=== PATIENT | female | born 1970 | race Two or more races ===

== ENCOUNTER 2018-03-22 15:21 | Inpatient (IN) | payer MEDICAID, OTHER ==
[~2018-03-22] VITALS: Ht 157.5 cm; Wt 35.4 kg
[2018-03-22 17:48] LABS: BASOPHILS % 0.8 % (0.0-2.0); EOSINOPHILS % 1.3 % (0.0-5.0); HEMATOCRIT. 36.8 % (36.0-48.0); HEMOGLOBIN. 12.2 g/dL (12.0-16.0); LYMPHOCYTES % 51.5 % (20.0-50.0); MEAN CORPUSCULAR HEMOGLOBIN 32.3 pg (28.0-32.0); MEAN CORPUSCULAR VOLUME 97.9 fL (81.0-99.0); MEAN PLATELET VOLUME 9.6 fl (7.4-10.4); MONOCYTES % 11.3 % (2.0-8.0); NEUTROPHILS % 35.1 % (40.0-76.0); PLATELET 145 x1000/uL (130-400); RED BLOOD CELL COUNT 3.76 mill/uL (4.2-5.4); RED CELL DISTRIBUTION WIDTH 13.7 % (11.6-14.6)
[2018-03-22 17:53] LABS: CHLORIDE 113 mEq/L (98-107)
[2018-03-22 17:56] LABS: INR 1.1
[2018-03-22 19:35] LABS: T4 FREE 0.79 ng/dL (0.76-1.46)
[2018-03-22] MEDS ORDERED: DIPH25CA83 MT (21:10)
[2018-03-22] MEDS ORDERED: AZIT500T5 MT (21:10)
[2018-03-22] MEDS ORDERED: ERGO400T7 MT (21:11)
[2018-03-22] MEDS ORDERED: PIRO20CA MT (21:12)
[2018-03-22] MEDS ORDERED: PRED-543 PO (21:12)
[2018-03-22 23:00] VITALS: BP 97/55
[2018-03-22 23:03] VITALS: BP 97/55
[2018-03-22] MEDS ORDERED: ACETAMINOPHEN 325MG TABLET PO PRN (23:45)
[2018-03-23] VITALS (9 sets, daily range): BP systolic 93–105; BP diastolic 45–73
[2018-03-23] MEDS ORDERED: MIRT7.5T11 MT (06:55)
[2018-03-23] MEDS ORDERED: GABA300C MT (06:56)
[2018-03-23 06:58] LABS: BASOPHILS % 0.6 % (0.0-2.0); EOSINOPHILS % 1.5 % (0.0-5.0); HEMATOCRIT. 36.7 % (36.0-48.0); HEMOGLOBIN. 12.4 g/dL (12.0-16.0); LYMPHOCYTES % 54.5 % (20.0-50.0); MEAN CORPUSCULAR HEMOGLOBIN 33.1 pg (28.0-32.0); MEAN CORPUSCULAR VOLUME 97.8 fL (81.0-99.0); MEAN PLATELET VOLUME 10.2 fl (7.4-10.4); MONOCYTES % 10.7 % (2.0-8.0); NEUTROPHILS % 32.7 % (40.0-76.0); PLATELET 138 x1000/uL (130-400); RED BLOOD CELL COUNT 3.75 mill/uL (4.2-5.4); RED CELL DISTRIBUTION WIDTH 13.7 % (11.6-14.6)
[2018-03-23 08:14] LABS: CHLORIDE 109 mEq/L (98-107)
[2018-03-23] MEDS ORDERED: ENOXAPARIN 30MG/0.3ML SYR SUBCUT SCH (09:00)
[2018-03-23] MEDS ORDERED: POTASSIUM CHLORIDE 20MEQ TABLET SR PO ONE (10:45)
[2018-03-23] MEDS ORDERED: PNEUMOCOCCAL 23-VAL P-SAC VAC 0.5 ML IM ONE (12:00)
[2018-03-23] MEDS ORDERED: ATROPINE SULFATE 1MG/ML VIAL IV PRN (12:45)
[2018-03-23 14:25] LABS: UCG SCREEN NEGATIVE
[2018-03-23 14:31] LABS: *AMPHETAMINES SCREEN URINE NEGATIVE (NEGATIVE)
[2018-03-23 14:32] LABS: *BARBITURATES SCREEN URINE NEGATIVE (NEGATIVE); *BENZODIAZEPINES SCREEN URINE NEGATIVE (NEGATIVE); *COCAINE SCREEN URINE NEGATIVE (NEGATIVE); METHADONE URINE SCREEN NEGATIVE (NEGATIVE); OPIATES URINE SCREEN NEGATIVE (NEGATIVE); PHENCYCLIDINE URINE SCREEN NEGATIVE (NEGATIVE)
[2018-03-23 14:35] LABS: CANNABINOID URINE SCREEN PRESUMTIVE POSITIVE (NEGATIVE)
== END 2018-03-23 23:40 | disposition short-term general hospital (02) | DRG 201 ==
LOC: ER 15:25 → 7WST 18:35 → ENRESERV 20:35 → 5EST 03-23 08:58
PROVIDERS: ADMIT Internal Medicine; ATTEND Internal Medicine
DX: R00.1 Bradycardia, unspecified (principal); G71.11 Myotonic muscular dystrophy; E44.0 Moderate protein-calorie malnutrition; I95.9 Hypotension, unspecified; E87.1 Hypo-osmolality and hyponatremia; I10 Essential (primary) hypertension; M79.7 Fibromyalgia; R29.6 Repeated falls; F12.90 Cannabis use, unspecified, uncomplicated; Z88.8 Allergy status to other drugs, medicaments and biological substances; Z79.899 Other long term (current) drug therapy; Z68.1 Body mass index [BMI] 19.9 or less, adult
CPT/HCPCS: 36415; 70450; 70544; 70553; 71045; 80048; 80053; 80305; 81025; 84439; 84443; 84484; 85025; 85610; 93005; 93880; 99285; J1650

== ENCOUNTER 2018-07-02 07:39 | Emergency (ER) | payer OTHER ==
[~2018-07-02] VITALS: Ht 162.6 cm; Wt 60.0 kg
[~2018-07-02 07:39] MED LIST: AZIT500T5 MT; DIPH25CA83 MT; ERGO400T7 MT; GABA300C MT; MIRT7.5T11 MT; PIRO20CA MT; PRED-543 PO
[2018-07-02] MEDS ORDERED: ONDANSETRON 4MG ODT PO ONE (08:15)
[2018-07-02 09:20] LABS: CLARITY URINE CLEAR (CLEAR); COLOR URINE YELLOW (YELLOW); KETONES URINE NEGATIVE (NEGATIVE); LEUKOCYTE ESTERASE URINE 1+ (NEGATIVE); NITRITE URINE NEGATIVE (NEGATIVE); OCCULT BLOOD URINE NEGATIVE (NEGATIVE); PROTEIN URINE NEGATIVE (NEGATIVE); SPECIFIC GRAVITY URINE 1.024 (1.005-1.030); UROBILINOGEN URINE 0.2 E.U./dL (0.2-1.0)
[2018-07-02 09:38] LABS: BASOPHILS % 0.8 % (0.0-2.0); EOSINOPHILS % 1.2 % (0.0-5.0); HEMOGLOBIN. 11.9 g/dL (12.0-16.0); MEAN CORPUSCULAR HEMOGLOBIN 32.1 pg (28.0-32.0); MEAN CORPUSCULAR VOLUME 97.1 fL (81.0-99.0); MEAN PLATELET VOLUME 8.9 fl (7.4-10.4); MONOCYTES % 7.5 % (2.0-8.0); NEUTROPHILS % 49.5 % (40.0-76.0); PLATELET 159 x1000/uL (130-400); RED BLOOD CELL COUNT 3.71 mill/uL (4.2-5.4); RED CELL DISTRIBUTION WIDTH 14.1 % (11.6-14.6)
[2018-07-02 09:47] LABS: PROTHROMBIN TIME 10.1 sec (9.1-11.1)
[2018-07-02 09:50] LABS: CHLORIDE 112 mEq/L (98-107)
[2018-07-02 13:24] VITALS: BP 106/50
== END 2018-07-02 13:26 | disposition home or self-care (01) ==
LOC: ER 07:39
DX: R07.89 Other chest pain (principal); I10 Essential (primary) hypertension; D72.819 Decreased white blood cell count, unspecified; D64.9 Anemia, unspecified; Z95.0 Presence of cardiac pacemaker; Z88.6 Allergy status to analgesic agent
CPT/HCPCS: 36415; 71045; 80053; 81003; 81025; 84484; 85025; 85610; 93005; 99285; Q0162